=== PATIENT | female | born 1965 | race Caucasian/White ===

== ENCOUNTER → 2019-11-18 | Outpatient (CLI) | payer OTHER ==
[2019-11-18 09:18] LABS: HGB 10.1 gm/dL (11.4-16.0); Hypochromasia Slight; MCH 35.4 pg (25.0-35.0); MCHC 31.5 g/dL (31.0-37.0); Macrocytosis Marked; Mean Platelet Volume 8.8; Platelet Count 274 k/uL (150-450); RBC 2.85 m/uL (3.80-5.40); RDW 15.7 % (11.5-15.5); WBC 10.9 k/uL (3.8-10.6)
[2019-11-18 09:24] LABS: MCV 112.4 fL (80.0-100.0)
[2019-11-18 16:19] LABS: T4, Free (Free Thyroxine) 1.2 ng/dL (0.80-1.80)
[2019-11-18 16:37] LABS: African American GFR (CKD) 115.5 (60.0-200.0); Albumin 2.8 g/dL (3.80-4.90); Albumin/Globulin Ratio 0.93 (1.60-3.17); Anion Gap 15.6 mmol/L (4.00-12.00); BUN/Creat Ratio 14.29 Ratio (12.00-20.00); Calcium 8.3 mg/dL (8.7-10.3); Carbon Dioxide 22.4 mmol/L (21.6-31.8); Non-African American GFR(CKD) 99.6 (60.0-200.0); Potassium 3.3 mmol/L (3.5-5.5); Total Bilirubin 2.8 mg/dL (0.2-1.2); Total Protein 5.8 g/dL (6.2-8.2)
== END | disposition home or self-care (01) ==
LOC: LABWHC1 08:08
PROVIDERS: ATTEND Internal Medicine
DX: R53.83 Other fatigue (principal); F32.9 Major depressive disorder, single episode, unspecified
CPT/HCPCS: 36415; 80053; 82306; 82607; 83540; 84439; 84443; 84481; 85027